=== PATIENT | male | born 1975 | race Caucasian/White ===

== ENCOUNTER 2016-05-13 16:47 | Emergency (ER) | payer OTHER ==
[~2016-05-13] VITALS: Ht 177.8 cm; Wt 98.9 kg
[2016-05-13 19:33] VITALS: BP 146/87
== END 2016-05-13 19:33 | disposition home or self-care (01) ==
LOC: ED 16:47
DX: J02.9 Acute pharyngitis, unspecified (principal); H92.02 Otalgia, left ear; I10 Essential (primary) hypertension; G40.909 Epilepsy, unspecified, not intractable, without status epilepticus; M10.9 Gout, unspecified

== ENCOUNTER 2016-07-26 17:03 | Emergency (ER) | payer OTHER ==
[2016-07-26] MEDS ORDERED: ZESTRIL20 MG PO (18:04)
[2016-07-26 18:31] LABS: CALCIUM 8.5 mg/dL (8.5-10.1); CARBON DIOXIDE 24.6 mmol/L (21-32); CHLORIDE SERUM 100 mmol/L (98-107); CREATININE SERUM 0.9 mg/dL (0.7-1.3); GFR1 > 60 mL/min; GLUCOSE SERUM 110 mg/dL (74-106); POTASSIUM SERUM 3.9 mmol/L (3.5-5.1); SODIUM SERUM 142 mmol/L (136-145)
[2016-07-26 18:32] LABS: BASOPHIL % 0.3 % (0-2)
[2016-07-26 18:35] LABS: ALBUMIN 3.9 g/dL (3.4-5.0); ALKALINE PHOSPHATASE 58 U/L (46-116); ALT/SGPT 48 U/L (16-63); BILIRUBIN TOTAL 0.49 mg/dL (0.20-1.00); LIPASE 274 IU/L (73-393); TOTAL PROTEIN, SERUM 7.9 g/dL (6.4-8.2)
[2016-07-26 18:42] LABS: PLATELET COUNT 102 x10^3mcL (130-400); RED CELL DISTRIBUTION WIDTH 14.8 % (11.5-14.5)
[2016-07-26 19:00] LABS: AST/SGOT 34 U/L (15-37)
[2016-07-26 21:25] VITALS: BP 149/74
== END 2016-07-26 21:25 | disposition home or self-care (01) ==
LOC: ED 17:03
PROVIDERS: Emergency Medicine
DX: R07.89 Other chest pain (principal); F41.9 Anxiety disorder, unspecified; R09.02 Hypoxemia; I10 Essential (primary) hypertension
CPT/HCPCS: J7030; Q9967

== ENCOUNTER 2016-11-16 05:35 | Emergency (ER) | payer OTHER ==
[~2016-11-16] VITALS: Ht 180.3 cm; Wt 101.6 kg
[~2016-11-16 05:35] MED LIST: ZESTRIL20 MG PO
[2016-11-16 06:52] VITALS: BP 133/99
== END 2016-11-16 06:50 | disposition home or self-care (01) ==
LOC: ED 05:35
DX: M10.072 Idiopathic gout, left ankle and foot (principal); I10 Essential (primary) hypertension; G40.909 Epilepsy, unspecified, not intractable, without status epilepticus
CPT/HCPCS: J1885

== ENCOUNTER 2017-02-22 00:48 | Inpatient (IN) | payer OTHER ==
[~2017-02-22] VITALS: Ht 177.8 cm; Wt 104.0 kg
[2017-02-22 01:04] VITALS: Ht 177.8 cm; Wt 104.0 kg
[2017-02-22 02:34] LABS: CALCIUM 8.5 mg/dL (8.5-10.1); CARBON DIOXIDE 23.3 mmol/L (21-32); CHLORIDE SERUM 103 mmol/L (98-107); CREATININE SERUM 0.8 mg/dL (0.7-1.3); GFR1 > 60 mL/min; GLUCOSE SERUM 138 mg/dL (74-106); SODIUM SERUM 141 mmol/L (136-145)
[2017-02-22 02:46] LABS: ALBUMIN 3.8 g/dL (3.4-5.0); ALKALINE PHOSPHATASE 64 U/L (46-116); ALT/SGPT 58 U/L (16-63); AST/SGOT 37 U/L (15-37); BILIRUBIN TOTAL 0.2 mg/dL (0.20-1.00); TOTAL PROTEIN, SERUM 8.2 g/dL (6.4-8.2)
[2017-02-22 02:51] LABS: BASOPHIL % 0.2 % (0-2); PLATELET COUNT 262 x10^3mcL (130-400)
[2017-02-22 02:55] LABS: RED CELL DISTRIBUTION WIDTH 15.4 % (11.5-14.5)
[2017-02-22] MEDS ORDERED: ALLOPURINOL100 MG PO (05:18)
[2017-02-22 06:01] LABS: MAGNESIUM 2.2 mg/dL (1.8-2.4); PHOSPHOROUS 3.1 mg/dL (2.5-4.9)
[2017-02-22 06:05] LABS: CHOLESTEROL/HDL RATIO 2.3
[2017-02-22 06:07] LABS: T3 TOTAL 0.4 ng/mL
[2017-02-22 06:11] VITALS: BP 152/94
[2017-02-22 06:13] LABS: FREE T4 0.76 ng/dL (0.76-1.46)
[2017-02-22 06:44] LABS: FREE THYROXINE INDEX 1.2 ug/dL (1.4-4.5); T4(THYROXINE) 3.6 ug/dL (4.7-13.3)
[2017-02-22 07:45] LABS: UA SPECIFIC GRAVITY >=1.030 (1.005-1.035); microscopic required? YES; urine erythrocyte TRACE (NEGATIVE)
[2017-02-22 07:53] LABS: AMPHETAMINE QUAL UR NONE DETECTED (NEG <=1000)
[2017-02-22 09:21] VITALS: BP 158/82
== END 2017-02-22 10:26 | disposition left against medical advice (07) | DRG 770 ==
LOC: ED 00:48 → DU 05:11
PROVIDERS: Emergency Medicine; Family Medicine
DX: F10.129 Alcohol abuse with intoxication, unspecified (principal); N17.0 Acute kidney failure with tubular necrosis; G92 Toxic encephalopathy; D68.69 Other thrombophilia; E87.2 Acidosis; I10 Essential (primary) hypertension; M94.0 Chondrocostal junction syndrome [Tietze]; T51.0X1A Toxic effect of ethanol, accidental (unintentional), initial encounter; R73.03 Prediabetes; R80.9 Proteinuria, unspecified; M10.9 Gout, unspecified; Z68.38 Body mass index [BMI] 38.0-38.9, adult
CPT/HCPCS: 83880; 84439; G0480; J2405; J3490; J7030; Q0092

== ENCOUNTER 2018-03-23 22:45 | Inpatient (IN) | payer SELFPAY ==
[~2018-03-23] VITALS: Ht 175.3 cm; Wt 97.5 kg
[~2018-03-23 22:45] MED LIST changes: +ALLOPURINOL100 MG PO
[2018-03-23 23:26] LABS: BASOPHIL % 0.6 % (0-2); PLATELET COUNT 132 x10^3mcL (130-400); RED CELL DISTRIBUTION WIDTH 13.7 % (11.5-14.5)
[2018-03-23 23:36] LABS: UA SPECIFIC GRAVITY >=1.030 (1.005-1.035); microscopic required? YES; urine erythrocyte 2+ (NEGATIVE)
[2018-03-23 23:47] LABS: CALCIUM 9.1 mg/dL (8.5-10.1); CARBON DIOXIDE 25.6 mmol/L (21-32); CHLORIDE SERUM 100 mmol/L (98-107); GFR1 > 60 mL/min; GLUCOSE SERUM 107 mg/dL (74-106); POTASSIUM SERUM 3.5 mmol/L (3.5-5.1); SODIUM SERUM 140 mmol/L (136-145)
[2018-03-23 23:54] LABS: ALBUMIN 4.5 g/dL (3.4-5.0); ALKALINE PHOSPHATASE 61 U/L (46-116); ALT/SGPT 36 U/L (16-63); AMYLASE 54 U/L (25-115); AST/SGOT 35 U/L (15-37); BILIRUBIN TOTAL 0.5 mg/dL (0.20-1.00); CHOLESTEROL 218 mg/dL (<200); HDL CHOLESTEROL 106 mg/dL (40-60); LIPASE 193 IU/L (73-393); MAGNESIUM 1.7 mg/dL (1.8-2.4); TOTAL PROTEIN, SERUM 8.4 g/dL (6.4-8.2)
[2018-03-24] VITALS (7 sets, daily range): BP systolic 127–173; BP diastolic 69–101; Ht 175.3 cm; Wt 97.5 kg
[2018-03-24 00:06] LABS: AMPHETAMINE QUAL UR NONE DETECTED (See below)
[2018-03-24] MEDS ORDERED: ALLOPURINOL100 MG PO (00:59)
[2018-03-24 01:42] LABS: PHOSPHOROUS 4.1 mg/dL (2.5-4.9)
[2018-03-24 01:43] LABS: CHOLESTEROL/HDL RATIO 2.1
[2018-03-24 06:52] LABS: BASOPHIL % 0.9 % (0-2); RED CELL DISTRIBUTION WIDTH 13.4 % (11.5-14.5)
[2018-03-24 07:21] LABS: PLATELET COUNT 101 x10^3mcL (130-400)
[2018-03-24 07:23] LABS: CARBON DIOXIDE 26.8 mmol/L (21-32); CHLORIDE SERUM 101 mmol/L (98-107); CREATININE SERUM 0.9 mg/dL (0.7-1.3); GFR1 > 60 mL/min; GLUCOSE SERUM 81 mg/dL (74-106); MAGNESIUM 2.2 mg/dL (1.8-2.4); PHOSPHOROUS 3.4 mg/dL (2.5-4.9); POTASSIUM SERUM 3.7 mmol/L (3.5-5.1); SODIUM SERUM 143 mmol/L (136-145)
== END 2018-03-24 18:00 | disposition home or self-care (01) | DRG 305 ==
LOC: ED 22:45 → DU 03-24 00:54
PROVIDERS: Emergency Medicine; ADMIT Internal Medicine
DX: I16.0 Hypertensive urgency (principal); I10 Essential (primary) hypertension; E66.9 Obesity, unspecified; R56.9 Unspecified convulsions; F41.9 Anxiety disorder, unspecified; M10.9 Gout, unspecified; E87.8 Other disorders of electrolyte and fluid balance, not elsewhere classified; E83.42 Hypomagnesemia; Y90.0 Blood alcohol level of less than 20 mg/100 ml; F10.20 Alcohol dependence, uncomplicated; E78.5 Hyperlipidemia, unspecified; F10.229 Alcohol dependence with intoxication, unspecified; Z83.3 Family history of diabetes mellitus; Z91.19 Patient's noncompliance with other medical treatment and regimen; Z82.49 Family history of ischemic heart disease and other diseases of the circulatory system; Z68.25 Body mass index [BMI] 25.0-25.9, adult
CPT/HCPCS: 83880; 90658; G0480; J2060; J2405; J3411; J3475; J3490; J7030; Q0092